=== PATIENT | female | born 1975 | race American Indian/Alaskan Native ===

== ENCOUNTER 2017-09-25 13:48 | Emergency (ER) | payer OTHER ==
[2017-09-25] MEDS ORDERED: SUBLIMAZE IV ONE (14:13)
[2017-09-25] MEDS ORDERED: TORADOL IV ONE (14:13)
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
[2017-09-25 16:28] VITALS: BP 135/93
== END 2017-09-25 16:45 | disposition home or self-care (01) ==
LOC: ED 13:48
DX: S43.102A Unspecified dislocation of left acromioclavicular joint, initial encounter (principal); E11.9 Type 2 diabetes mellitus without complications; Z88.6 Allergy status to analgesic agent; Z91.013 Allergy to seafood; Y04.8XXA Assault by other bodily force, initial encounter; Y93.89 Activity, other specified; Y92.89 Other specified places as the place of occurrence of the external cause; Y99.8 Other external cause status
CPT/HCPCS: 71046; 73030; 73060; 96374; 96375; 99284; J1885; J3010